=== PATIENT | female | born 1985 | race Caucasian/White ===

== ENCOUNTER 2023-04-11 08:40 | Emergency (ER) | payer OTHER, SELFPAY ==
--- NOTE | ~2023-04-11 | XR_ITS ---
Right foot Technique: AP, oblique, and lateral views were obtained. Clinical History: Foot Findings: There is an acute, oblique, nondisplaced fracture of the fifth metatarsal shaft. No other f racture or dislocation seen. Joint spaces are preserved without erosive or degenerative change. Soft tissues are unremarkable. Impression: Oblique fracture of the fifth metatarsal shaft. Reviewed, dictated and finalized at location . M GIGGER Impression: Oblique fracture of the fifth metatarsal shaft.
[2023-04-11 08:49] VITALS: BP 144/88; PULSE 83; RESP 18; TEMP 36.4; O2SAT 100
--- NOTE | 2023-04-11 10:01 | ED.LOWEXIN ---
HPI - Extremity Injury (Lower) General Chief Complaint: Extremity Injury, Lower Stated Complaint: Right foot injury Time Seen by Provider: 04/11/23 09:40 Source: patient, RN notes reviewed and old records reviewed Mode of arrival: ambulatory Limitations: no limitations History of Present Illness HPI Narrative: 37-year-old female who presents to [facility] with complaints of right foot injury when walking up steps this morning and slipped. Patient reports that she felt a pop to her right lateral foot along 5th metatarsal area with swelling and palpable pain to region. Patient reports that injury occurred at her home.Patient reports that pain increases to right foot when she applies any weight bearing to foot. MD complaint: foot injury (right) Onset (ago): hour(s) (this morning) Type of Injury: other (slipped when walking up steps this morning) Treatments prior to arrival: other (none) Related Data Home Medications Medication Instructions Recorded Confirmed norgestimate 0.25 mg-ethinyl 1 tablet PO DAILY 11/21/20 11/21/20 estradiol 35 mcg tablet (Sprintec (28)) Allergies Allergy/AdvReac Type Severity Reaction Status Date / Time venom-honey bee Allergy Severe REATHING Verified 11/21/20 09:46 DIFFICULTY,HIVES,SWELLING Review of Systems Review of Systems: CONSTITUTIONAL: Denies fever, chills, or sweats. EYES: Denies visual changes, redness, or discharge. ENT: Denies rhinorrhea, congestion, sore throat, or otalgia. CARDIOVASCULAR: Denies chest pain, palpitations, or edema. RESPIRATORY: Denies cough or dyspnea. GASTROINTESTINAL: Denies abdominal pain, nausea, vomiting, or diarrhea. GENITOURINARY: Denies dysuria or hematuria. SKIN: Denies rash or itching. MUSCULOSKELETAL: Denies back pain,positive for pain to right lateral foot , or myalgia. NEUROLOGIC: Denies headache, numbness, or weakness. PSYCHIATRIC: Denies anxiety or depression. All systems reviewed & are unremarkable except as noted in HPI and below PMFSH Past Medical History Medical History (Updated 04/11/23 @ 10:19 by Laila Neil NP) H/O drainage of abscess Surgical History Surgical History (Updated 11/21/20 @ 09:49 by Taina Jose MA) History of tonsillectomy Family History Family History Grandparent Family history of arthritis Mother Family history of malignant neoplasm of cervix Father Family history of heart disease in male family member before age 55 Social History Social History Smoking status: Never smoker Alcohol intake: current Comments At time of signature, agree with nursing past medical, surgical, social and family history. There is no relevant family history pertinent to the presenting complaint Exam Narrative: GENERAL: Well-appearing, well-nourished, and in no acute distress. HEAD: Normocephalic, atraumatic. EYES: PERRLA and EOMI. ENT: Nares clear, no rhinorrhea or epistaxis. Mucous membranes moist. NECK: Supple. no lymphadenopathy CHEST: Clear to auscultation. No respiratory distress. no cough or complaints of congestion.SAO2 100% on room air HEART: Regular rate and rhythm. No murmur heard. Normal peripheral pulses. ABDOMEN: Soft, nontender, nondistended, normal active bowel sounds. EXTREMITIES: Normal range of motion. No edema.Exception noted to right lateral foot along right 5th metatarsal region with swelling and palpable tenderness.strong pedal pulses right foot,sensation intact, increased painwith movement and any eight bearing SKIN: Warm, dry, no rash. NEURO: No focal deficits. Alert and oriented x3. Course Course Emergency Course: Patient is aware of diagnosis, understands and agrees to treatment plan.? Anticipatory guidance given.? Patient agrees to follow-up as directed and is aware of reasons to seek care at the emergency department. Portions of this record may have been creat
== END 2023-04-11 10:41 | disposition home or self-care (01) ==
PROVIDERS: Emergency Provider Registered Nurse
DX: S92.354A Nondisplaced fracture of fifth metatarsal bone, right foot, initial encounter for closed fracture (principal); W10.9XXA Fall (on) (from) unspecified stairs and steps, initial encounter
CPT/HCPCS: 29515; 73630; 99214; G0463